=== PATIENT | female | born 1980 | race American Indian/Alaskan Native ===

== ENCOUNTER 2021-07-11 11:10 | Outpatient (CLI) | payer OTHER ==
--- NOTE | 2021-07-11 14:53 | XRay Report ---
Bilateral knees INDICATION: Pain FINDINGS: Postsurgical changes seen within the proximal tibia on the right. Screws appear broken. Mil d degenerative change with joint space narrowing in bilateral knees is diffuse. No large effusion. No acute bone fracture Signer Name: Alex Elizabeth MD Signed: 07/11/2021 2:48 PM Workstation Name: [email or web address]
== END 2021-07-11 11:11 | disposition home or self-care (01) ==
LOC: XRAY 11:10
PROVIDERS: ATTEND Orthopaedic Surgery
DX: M17.0 Bilateral primary osteoarthritis of knee (principal)
CPT/HCPCS: 73565

== ENCOUNTER 2021-08-13 09:26 | Outpatient (CLI) | payer OTHER ==
--- NOTE | 2021-08-13 10:14 | XRay Report ---
BILATERAL KNEE 2 VIEW(S) INDICATION / CLINICAL INFORMATION: M25.569 PAIN IN UNSPECIFIED KNEE COMPARISON: None available. FINDINGS: BONES / JOINT(S): No acute fracture or dislocation. Stable mild degenerative changes in both knees. T here are 3 screws in the proximal metaphysis of the right tibia. The 2 most cranial screws are fractu red but this is unchanged from prior exam. Bilateral small joint effusions. SOFT TISSUES: No significant abnormality. ADDITIONAL FINDINGS: None. Signer Name: Uriel Clemens MD Signed: 08/13/2021 10:09 AM Workstation Name: [email or web address]
== END 2021-08-13 09:27 | disposition home or self-care (01) ==
LOC: XRAY 09:26
PROVIDERS: ATTEND Orthopaedic Surgery
DX: M17.0 Bilateral primary osteoarthritis of knee (principal); M25.462 Effusion, left knee; M25.461 Effusion, right knee
CPT/HCPCS: 73565